=== PATIENT | male | born 1960 | race Caucasian/White ===

== ENCOUNTER 2019-01-08 12:58 | Emergency (ER) | payer OTHER ==
[2019-01-08 13:05] VITALS: BP 140/95
--- NOTE | 2019-01-08 13:40 | UC ---
Back Pain HPI - HPI Summary HPI Summary: 58-year-old male who has a history of chronic low back pain. Over the past few days he has been involved in sports and noted that he had some left lower back pain which shoots down his left leg. He has not had a history of sciatica in the past. He denies any saddle anesthesia, no numbness or tingling in his extremities. He has normal bowel and bladder control. - History of Current Complaint Chief Complaint: UCBackPain Stated Complaint: BACK AND LEG PAIN Time Seen by Provider: 01/08/19 13:40 Hx Obtained From: Patient Onset/Duration: Gradual Onset Timing: Intermittent Severity Initially: Moderate Severity Currently: Mild Pain Intensity: 9 Character: Sharp, Dull, Aching Aggravating Factor(s): Movement, Bending, Walking Alleviating Factor(s): Rest, Position Associated Signs And Symptoms: Negative: Weakness, Numbness, Tingling, Abdominal Pain, Flank Pain, Bladder Incontinence, Bowel Incontinence, Pain with Weight Bearing - Allergies/Home Medications Allergies/Adverse Reactions: Allergies Allergy/AdvReac Type Severity Reaction Status Date / Time No Known Allergies Allergy Verified 01/08/19 13:05 PMH/Surg Hx/FS Hx/Imm Hx Previously Healthy: Yes - Surgical History Surgical History: Yes Surgery Procedure, Year, and Place: Left medial meniscus. Tonsilectomy. Nasal turbinate removal - Family History Known Family History: Positive: None, Non-Contributory - Social History Occupation: Employed Full-time Alcohol Use: Daily Alcohol Amount: 2 drinks daily Substance Use Type: None Smoking Status (MU): Never Smoked Tobacco Have You Smoked in the Last Year: No Review of Systems All Other Systems Reviewed And Are Negative: Yes Motor: Positive: Negative Neurovascular: Positive: Negative Musculoskeletal: Positive: Negative, Other: - Patient has more pain in the left lower back if he is sitting for a long time. Denies any saddle anesthesia, no numbness or tingling in extremities. He does have chronic low back issues which flare up from time to time. He has not seen a specialist in the past. Today he states the pain shoots down his left anterior thigh and this morning there was a burning sensation into the left inguinal area however no involvement of the testicles or penis. Neurological: Positive: Negative Psychological: Positive: Negative Is Patient Immunocompromised?: No Physical Exam Triage Information Reviewed: Yes Appearance: Well-Appearing, No Pain Distress, Well-Nourished Vital Signs: Initial Vital Signs Temp 97.4 F 01/08/19 13:02 Pulse 68 01/08/19 13:02 Resp 18 01/08/19 13:02 BP 140/95 01/08/19 13:02 Pulse Ox 100 01/08/19 13:02 Vital Signs Reviewed: Yes Respiratory: Positive: Lungs clear, Normal breath sounds, No respiratory distress, No accessory muscle use Cardiovascular: Positive: RRR, No Murmur, Pulses Normal, Brisk Capillary Refill Abdomen Description: Positive: Nontender, No Organomegaly, Soft Bowel Sounds: Positive: Present Musculoskeletal Exam: Normal Musculoskeletal: Positive: Other: - Patient actually moves around very easily in the room and on the exam table. Negative straight leg raise, good peripheral pulses neuro sensation capillary refill. Reflexes +2 right knee +1 left knee. Patient does have point tenderness in the left lower back with no bruising, erythema, deformity or swelling. Neurological: Positive: Alert, Muscle Tone Normal Psychological Exam: Normal Skin Exam: Normal Back Pain Course/Dx - Course Course Of Treatment: I believe this point time this is a low back strain on the left side. Patient was given Flexeril and Motrin to take as directed. He is to apply heat to the sore areas. He was given the name of a neurosurgeon in [place] to follow-up with if he has continued pain or no improvement and he is to go to the emergency room if he has loss of bowel or bladder function, any loss of motor function or worsening symptoms. 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 - Differential Dx/Diagnosis Provider Diagnosis: Low back strain Discharge - Sign-Out/Discharge Documenting (check all that apply): Patient Departure All imaging exams completed and their final reports reviewed: No Studies - Discharge Plan Condition: Fair Disposition: HOME Prescriptions: Cyclobenzaprine TAB* [Flexeril 10 MG TAB*] 10 mg PO TID PRN #15 tab PRN Reason: Pain Ibuprofen TAB* [Motrin TAB* 600 MG] 600 mg PO Q8H PRN #20 tab PRN Reason: Pain Patient Education Materials: Low Back Strain (ED) Referrals: Ayden Bowling MD [Primary Care Provider] - Angel Whitaker MD [Medical Doctor] - Additional Instructions: Avoid movements that cause pain. Take Motrin every 8 hours with food. Do not operate machinery, drive or drink alcohol while you're taking the muscle relaxant. Apply heat to the sore area. Definite follow-up in the emergency room if you develop any loss of motor control, worsening symptoms or loss of bladder or bowel control. Follow-up with Dr. Whitaker for further care of chronic low back pain. - Billing Disposition and Condition Condition: FAIR Disposition: Home
[2019-01-08] MEDS ORDERED: Ketorolac INJ* 60 MG/2 ML VIAL IM ONE (13:52)
== END 2019-01-08 14:10 | disposition home or self-care (01) ==
LOC: UCEAST 12:58
DX: S39.012A Strain of muscle, fascia and tendon of lower back, initial encounter (principal); X58.XXXA Exposure to other specified factors, initial encounter; Y92.9 Unspecified place or not applicable
CPT/HCPCS: 96372; 99202; G0463; J1885